=== PATIENT | female | born 1950 | race Two or more races ===

== ENCOUNTER → 2019-11-27 | Outpatient (CLI) | payer MEDICARE | END | disposition home or self-care (01) | LOC: CFH 13:33 | PROVIDERS: ATTEND Internal Medicine Cardiovascular Disease | DX: I35.9 Nonrheumatic aortic valve disorder, unspecified (principal); I47.1 Supraventricular tachycardia; I48.91 Unspecified atrial fibrillation; I10 Essential (primary) hypertension | CPT/HCPCS: 93306 ==

== ENCOUNTER → 2020-01-14 | Outpatient (CLI) | payer MEDICARE ==
[~2020-01-14] MED LIST: OMNIPAQUE 350 MG/ML, 150 ML BOTTLE ONE
== END | disposition home or self-care (01) ==
LOC: CFH 09:18
PROVIDERS: ATTEND Internal Medicine Cardiovascular Disease
DX: I48.91 Unspecified atrial fibrillation (principal)
CPT/HCPCS: 75572; 82565; Q9967

== ENCOUNTER 2020-01-18 08:47 | Observation (INO) | payer MEDICARE ==
[~2020-01-18] VITALS: Ht 157.5 cm; Wt 99.5 kg
[2020-01-18] MEDS ORDERED: SODIUM CHLORIDE 0.9% 1,000 ML IV SCH (09:31)
[2020-01-18] MEDS ORDERED: RIVA20TA PO (09:56)
[2020-01-18] MEDS ORDERED: HYDR25TA6 PO (09:57)
[2020-01-18] MEDS ORDERED: BUPR150T28 PO (09:58)
[2020-01-18] MEDS: PLEASE ENTER HEIGHT AND WEIGHT MC SCH ×2 (10:00→18:00)
[2020-01-18] MEDS: PLEASE ENTER ALLERGIES MC SCH ×2 (10:00→18:00)
[2020-01-18] MEDS ORDERED: SODIUM CHLORIDE 0.9% 1,000 ML IV ONE (10:00)
[2020-01-18] MEDS ORDERED: POTASSIUM CHLORIDE PO (10:01)
[2020-01-18] MEDS ORDERED: MULT-758 PO (10:03)
[2020-01-18] MEDS ORDERED: ACET325C6 PO (10:05)
[2020-01-18] MEDS ORDERED: CYAN10002 IVPush (10:07)
[2020-01-18] MEDS ORDERED: ALPR0.5T PO (10:08)
[2020-01-18] MEDS ORDERED: TYLENOL PM PO (10:10)
[2020-01-18 10:20] LABS: ALBUMIN 3.9 g/dL (3.4-5.0); ANION GAP 8 mmol/L (5-15); CALCIUM 8.9 mg/dL (8.5-10.1); CHLORIDE 106 mmol/L (98-107)
[2020-01-18 10:23] LABS: ALANINE AMINOTRANSFERASE 48 U/L (12-78); ALKALINE PHOSPHATASE 72 U/L (45-117); BILIRUBIN,TOTAL 0.4 mg/dL (0.2-1.0); CREATININE 0.89 mg/dL (0.55-1.02); TOTAL PROTEIN 7.5 g/dL (6.4-8.2)
[2020-01-18] MEDS ORDERED: MIDAZOLAM 1 MG/ML, 2ML ONE (10:27)
[2020-01-18] MEDS ORDERED: FENTANYL PF 250 MCG/5ML ONE (10:28)
[2020-01-18] MEDS ORDERED: ROCURONIUM 10 MG/ML,10ML ONE (10:35)
[2020-01-18] MEDS ORDERED: PROPOFOL 10 MG/ML, 20ML ONE (10:35)
[2020-01-18] MEDS ORDERED: SUCCINYLCHOLINE 20 MG/ML, 10ML ONE (10:35)
[2020-01-18] MEDS ORDERED: EPHEDRINE 50 MG/ML, 1ML ONE (10:35)
[2020-01-18] MEDS ORDERED: LIDOCAINE 1%, 20ML ONE (10:38)
[2020-01-18] MEDS ORDERED: DEXAMETHASONE 4 MG/ML, 1ML ONE ×2 (11:07→11:41)
[2020-01-18] MEDS ORDERED: HEPARIN 1,000 UNITS/ML, 10ML ONE ×3 (11:40→11:41)
[2020-01-18] MEDS ORDERED: ACETAMINOPHEN 325 MG TABLET PO PRN ×2 (14:00→14:30)
[2020-01-18] MEDS ORDERED: FENTANYL PF 100 MCG/2ML ONE (14:03)
[2020-01-18] MEDS ORDERED: ONDANSETRON 2MG/ML, 2ML ONE ×2 (14:07)
[2020-01-18] MEDS: RIVAROXABAN 20 MG TABLET PO SCH (14:15)
[2020-01-18] MEDS ORDERED: HYDROmorphone 1 MG/ML, 1ML INJ IVPush PRN (14:30)
[2020-01-18] MEDS ORDERED: LABETALOL 5MG/ML, 20ML IV PRN (14:30)
[2020-01-18] MEDS ORDERED: PROMETHAZINE 12.5 MG SUPP PR PRN (14:30)
[2020-01-18] MEDS ORDERED: DIAZEPAM 5 MG/ML, 2ML IVPush PRN (14:30)
[2020-01-18] MEDS ORDERED: hydrALAzine 20 MG/ML, 1ML IV PRN (14:30)
[2020-01-18] MEDS ORDERED: EPHEDRINE 50 MG/ML, 1ML IVPush PRN (14:30)
[2020-01-18] MEDS ORDERED: ONDANSETRON 2MG/ML, 2ML IVPush PRN (14:30)
[2020-01-18] MEDS ORDERED: DIPHENHYDRAMINE 50 MG/ML, 1ML IVPush PRN (14:30)
[2020-01-18] MEDS ORDERED: PROMETHAZINE 25 MG/ML, 1ML IVPush PRN (14:30)
[2020-01-18] MEDS ORDERED: OXYcodone 5 MG/5 ML ORAL.SOL UDC PO PRN (14:30)
[2020-01-18] MEDS ORDERED: MEPERIDINE/PF 25MG/0.5ML IVPush PRN (14:30)
[2020-01-18] MEDS ORDERED: MIDAZOLAM 1 MG/ML, 2ML IV PRN (14:30)
[2020-01-18] MEDS ORDERED: FENTANYL PF 100 MCG/2ML IV PRN (14:30)
[2020-01-18] MEDS ORDERED: ALBUTEROL SULFATE 2.5 MG/3 ML NPPB PRN (14:30)
[2020-01-18] MEDS: ACETAMINOPHEN 325 MG TABLET PO PRN (17:27)
[2020-01-18] MEDS: COLCHICINE 0.6 MG CAPSULE PO SCH (20:02)
[2020-01-18] MEDS: BUPROPION SR 150 MG TABLET PO SCH (20:03)
[2020-01-18 20:24] VITALS: BP 116/76
[2020-01-18] MEDS ORDERED: MELATONIN 5 MG TABLET PO PRN (23:30)
[2020-01-19 00:50] VITALS: BP 101/65
[2020-01-19] MEDS: PLEASE ENTER HEIGHT AND WEIGHT MC SCH (02:00)
[2020-01-19] MEDS: PLEASE ENTER ALLERGIES MC SCH (02:00)
[2020-01-19] MEDS ORDERED: COLC0.6C3 PO (08:09)
[2020-01-19 08:32] VITALS: BP 127/74
[2020-01-19] MEDS: ACETAMINOPHEN 325 MG TABLET PO PRN (08:41)
[2020-01-19] MEDS: COLCHICINE 0.6 MG CAPSULE PO SCH (08:42)
[2020-01-19] MEDS: BUPROPION SR 150 MG TABLET PO SCH (08:42)
[2020-01-19] MEDS: RIVAROXABAN 20 MG TABLET PO SCH (08:42)
[2020-01-19] MEDS ORDERED: HYDROCHLOROTHIAZIDE 25 MG TABLET PO SCH (09:00)
[2020-01-19] MEDS ORDERED: RIVAROXABAN 20 MG TABLET PO SCH (09:00)
== END 2020-01-19 11:31 | disposition home or self-care (01) ==
LOC: CACL 08:47 → ORIP 13:55 → INTOOBSV 13:55 → 5SO 16:27 → DCLOUNGE 01-19 11:27
PROVIDERS: ADMIT Internal Medicine Cardiovascular Disease; ATTEND Internal Medicine Cardiovascular Disease
DX: Z03.818 Encounter for observation for suspected exposure to other biological agents ruled out (principal); I48.91 Unspecified atrial fibrillation; I48.92 Unspecified atrial flutter; D68.69 Other thrombophilia; I10 Essential (primary) hypertension; E66.9 Obesity, unspecified; Z79.01 Long term (current) use of anticoagulants; Z79.899 Other long term (current) drug therapy; Z95.0 Presence of cardiac pacemaker; Z68.41 Body mass index [BMI] 40.0-44.9, adult
CPT/HCPCS: 36415; 80053; 85347; 87635; 93308; 93312; 93321; 93325; 93613; 93655; 93656; 93662; C1730; C1732; C1759; C1766; C1893; C1894; G0378; J0330; J1100; J1644; J2250; J2405; J2704; J3010; J3490

== ENCOUNTER 2021-03-10 13:23 | Outpatient (CLI) | payer MEDICARE ==
[~2021-03-10 13:23] MED LIST changes: -DRON400T6 PO; -OMNIPAQUE 350 MG/ML, 150 ML BOTTLE ONE; -POTA10TA6 PO
[2021-03-11] MEDS ORDERED: POTA10TA6 PO (06:44)
[2021-03-11] MEDS ORDERED: DRON400T6 PO (06:46)
== END 2021-03-10 23:59 | disposition home or self-care (01) ==
LOC: STAR 13:23
PROVIDERS: ATTEND Nurse Practitioner
DX: Z02.9 Encounter for administrative examinations, unspecified (principal)

== ENCOUNTER → 2021-03-10 | Outpatient (CLI) | payer MEDICARE ==
[~2021-03-10] MED LIST changes: +ACET325C6 PO; +ALPR0.5T PO; +BUPR150T28 PO; +COLC0.6C3 PO; +CYAN10002 IVPush; +DRON400T6 PO; +HYDR25TA6 PO; +MULT-758 PO; +POTA10TA6 PO; +POTASSIUM CHLORIDE PO; +RIVA20TA PO; +TYLENOL PM PO
== END | disposition home or self-care (01) ==
LOC: CFH 14:04
PROVIDERS: ATTEND Internal Medicine Cardiovascular Disease
DX: I48.91 Unspecified atrial fibrillation (principal)
CPT/HCPCS: 75572; Q9967

== ENCOUNTER 2021-03-11 06:04 | Observation (INO) | payer MEDICARE ==
[~2021-03-11] VITALS: Ht 157.5 cm; Wt 93.0 kg
[2021-03-11] MEDS ORDERED: SODIUM CHLORIDE 0.9% 1,000 ML IV SCH ×2 (06:30)
[2021-03-11] MEDS ORDERED: POTA10TA6 PO (06:44)
[2021-03-11] MEDS ORDERED: DRON400T6 PO (06:46)
[2021-03-11 06:55] VITALS: BP 138/71
[2021-03-11] MEDS ORDERED: LIDOCAINE-MPF 2% ,5ML ONE (07:43)
[2021-03-11] MEDS ORDERED: FENTANYL PF 100 MCG/2ML ONE ×2 (07:43→10:25)
[2021-03-11] MEDS ORDERED: HEPARIN 1,000 UNITS/ML, 10ML ONE ×3 (07:43→09:57)
[2021-03-11] MEDS ORDERED: LABETALOL 5MG/ML, 20ML IV PRN (08:00)
[2021-03-11] MEDS ORDERED: ACETAMINOPHEN 325 MG TABLET PO PRN ×2 (08:00→11:00)
[2021-03-11] MEDS ORDERED: FENTANYL PF 100 MCG/2ML IV PRN (08:00)
[2021-03-11] MEDS ORDERED: HYDROmorphone 1 MG/ML, 1ML INJ IVPush PRN (08:00)
[2021-03-11] MEDS ORDERED: ONDANSETRON 2MG/ML, 2ML IVPush PRN ×2 (08:00→11:00)
[2021-03-11] MEDS ORDERED: OXYcodone 5 MG/5 ML ORAL.SOL UDC PO PRN (08:00)
[2021-03-11] MEDS ORDERED: PROMETHAZINE 25 MG/ML, 1ML IVPush PRN (08:00)
[2021-03-11] MEDS ORDERED: EPHEDRINE 50 MG/ML, 1ML IVPush PRN (08:00)
[2021-03-11] MEDS ORDERED: hydrALAzine 20 MG/ML, 1ML IV PRN (08:00)
[2021-03-11] MEDS ORDERED: DEXAMETHASONE 4 MG/ML, 1ML ONE (08:34)
[2021-03-11] MEDS ORDERED: PHENYLEPHRINE 10 MG/ML ONE (08:34)
[2021-03-11] MEDS ORDERED: ONDANSETRON 2MG/ML, 2ML ONE (08:34)
[2021-03-11] MEDS ORDERED: SUCCINYLCHOLINE 20 MG/ML, 10ML ONE (08:34)
[2021-03-11] MEDS ORDERED: PROPOFOL 10 MG/ML, 20ML ONE (08:34)
[2021-03-11] MEDS ORDERED: ROCURONIUM 10MG/ML,5ML ONE ×2 (08:34→09:48)
[2021-03-11] MEDS ORDERED: SUGAMMADEX 200 MG/2 ML IVPush ONE (08:35)
[2021-03-11] MEDS ORDERED: LIDOCAINE 2%, 20ML ONE (08:42)
[2021-03-11] MEDS ORDERED: ISOPROTERENOL 0.2MG/ML, 5ML ONE (09:05)
[2021-03-11] MEDS ORDERED: ADENOSINE 6 MG/2 ML ONE ×2 (10:10)
[2021-03-11] MEDS ORDERED: RIVAROXABAN 20 MG TABLET PO SCH (11:00)
[2021-03-11] MEDS ORDERED: TYLENOL PM PO PRN (11:00)
[2021-03-11] MEDS ORDERED: hydrALAzine 20 MG/ML, 1ML ONE (11:21)
[2021-03-11] MEDS: RIVAROXABAN 20 MG TABLET PO SCH (11:58)
[2021-03-11] MEDS ORDERED: ACETAMINOPHEN 325 MG TABLET ONE (12:01)
[2021-03-11] MEDS: ACETAMINOPHEN 325 MG TABLET PO PRN (12:09)
[2021-03-11 19:30] VITALS: BP 136/84
[2021-03-11] MEDS ORDERED: BUPROPION SR 150 MG TABLET PO SCH (21:00)
[2021-03-11] MEDS: POTASSIUM CHLORIDE 20 MEQ TAB.ER.PRT PO SCH (21:24)
[2021-03-11] MEDS: COLCHICINE 0.6 MG CAPSULE PO SCH (21:24)
[2021-03-11] MEDS: ZOLPIDEM 5MG TABLET PO PRN (21:25)
[2021-03-11] MEDS: BISACODYL 5 MG EC TABLET PO PRN (22:23)
[2021-03-12 03:55] VITALS: BP 108/70
[2021-03-12 06:42] VITALS: BP 125/76
[2021-03-12] MEDS: ACETAMINOPHEN 325 MG TABLET PO PRN ×2 (07:14→20:57)
[2021-03-12] MEDS ORDERED: BUPROPION SR 150 MG TABLET PO SCH (09:00)
[2021-03-12] MEDS: HYDROCHLOROTHIAZIDE 25 MG TABLET PO SCH (09:53)
[2021-03-12] MEDS: COLCHICINE 0.6 MG CAPSULE PO SCH ×2 (09:53→20:58)
[2021-03-12] MEDS: RIVAROXABAN 20 MG TABLET PO SCH (09:53)
[2021-03-12] MEDS: MULTIVITAMIN 1 TABLET PO SCH (09:53)
[2021-03-12] MEDS ORDERED: SOTALOL 80MG TABLET PO SCH (10:30)
[2021-03-12] MEDS: SOTALOL 80MG TABLET PO SCH ×2 (10:52→20:57)
[2021-03-12 13:54] VITALS: BP 104/68
[2021-03-12 20:53] VITALS: BP 133/62
[2021-03-12] MEDS: POTASSIUM CHLORIDE 20 MEQ TAB.ER.PRT PO SCH (20:57)
[2021-03-12] MEDS: BISACODYL 5 MG EC TABLET PO PRN (20:58)
[2021-03-12] MEDS: ZOLPIDEM 5MG TABLET PO PRN (22:16)
[2021-03-13 02:01] VITALS: BP 110/72
[2021-03-13] MEDS ORDERED: BUPROPION SR 150 MG TABLET PO SCH ×3 (06:00→09:00)
[2021-03-13 06:53] VITALS: BP 103/63
[2021-03-13] MEDS: COLCHICINE 0.6 MG CAPSULE PO SCH (08:47)
[2021-03-13] MEDS: RIVAROXABAN 20 MG TABLET PO SCH (08:48)
[2021-03-13] MEDS: MULTIVITAMIN 1 TABLET PO SCH (08:48)
[2021-03-13] MEDS: HYDROCHLOROTHIAZIDE 25 MG TABLET PO SCH (08:48)
[2021-03-13] MEDS: SOTALOL 80MG TABLET PO SCH (08:48)
[2021-03-13] MEDS ORDERED: SOTA80TA18 PO (11:22)
[2021-03-13] MEDS ORDERED: COLC0.6C3 PO (11:22)
[2021-03-13 13:12] VITALS: BP 115/81
== END 2021-03-13 13:40 | disposition home or self-care (01) ==
LOC: CACL 06:04 → ORIP 10:39 → 5SO 16:00
PROVIDERS: ADMIT Internal Medicine Cardiovascular Disease; ATTEND Internal Medicine Cardiovascular Disease
DX: I48.91 Unspecified atrial fibrillation (principal); I48.4 Atypical atrial flutter; I47.1 Supraventricular tachycardia; Q21.1 Atrial septal defect; D68.69 Other thrombophilia; Z95.0 Presence of cardiac pacemaker; Z79.899 Other long term (current) drug therapy
CPT/HCPCS: 85347; 93005; 93306; 93312; 93321; 93325; 93356; 93613; 93623; 93655; 93656; 93662; C1730; C1732; C1759; C1766; C1893; C1894; G0378; J0153; J0330; J1100; J1644; J2370; J2405; J2704; J3010; J3490